=== PATIENT | female | born 1975 | race Caucasian/White ===

== ENCOUNTER → 2019-10-11 16:53 | Outpatient (CLI) | payer MEDICAID, SELFPAY ==
[2019-10-11 17:20] LABS: Absolute Lymphocyte Count 3.17 X10^3/uL (0.83-4.51); Absolute Neutrophil Count 4.3 X10^3/uL (2.0-7.7); Basophil# 0.03 X10^3/uL; Basophil% 0.4 % (0-1); Eosinophil# 0.17 X10^3/uL; Hematocrit 40.3 % (37-47); Hemoglobin 13.6 g/dL (12.0-15.0); Lymphocyte # 3.17 X10^3/ul (4.0); Lymphocyte % 38.1 % (19-41); Mean Corp Hgb Conc 33.7 g/dL (32-36); Mean Corpuscular Hgb 31.3 pg (27.0-32.0); Mean Corpuscular Volume 92.9 fL (81-99); Mean Platelet Vol. 10.7 fl (6.2-12.0); Monocyte# 0.58 X10^3/uL; NRBC Flagged by Analyzer 0 % (0-5); Neutrophil # 4.34 X10^3/uL (2.7-7.7); Neutrophil % 52.3 % (47-70); Platelet Count 284 K/mm3 (150-450); RBC Distribution Width CV 12.7 % (11.6-14.6); RBC Distribution Width SD 43.5 fl (35.1-43.9); Red Blood Count 4.34 M/mm3 (4.2-5.4); White Blood Count 8.3 K/mm3 (4.4-11.0)
[2019-10-11 18:29] LABS: ALB/GLOB Ratio 1.1 RATIO (0.9-2.4); AST(SGOT) 25 U/L (15-37); Alanine Aminotransfer ALT/SGPT 66 U/L (13-56); Albumin, Serum 3.4 g/dL (3.2-5.0); Alkaline Phosphatase 141 U/L (45-117); Anion Gap 2 (5-15); BUN 8 mg/dL (7-18); BUN/Creat Ratio 10.1 RATIO (10-20); Calcium,Total 8.3 mg/dL (8.5-10.1); Chloride 111 mmol/L (98-107); EST Glomerular Filtration Rate 83 mL/min (>60); Est Glom Filt Rate - Afr Amer 101 mL/min (>60); Globulin 3.2 g/dL (2.2-4.2); Glucose 93 mg/dL (74-106); Potassium 3.3 mmol/L (3.5-5.1); Protein, Total 6.6 g/dL (6.4-8.2); Sodium Level 142 mmol/L (136-145); Thyroid Stim Hormone (TSH) 0.37 uIU/mL (0.358-3.74)
== END ==
PROVIDERS: Visit Provider Family Medicine Geriatric Medicine
DX: R53.83 Other fatigue (principal)
CPT/HCPCS: 36415; 80053; 84443; 85025

== ENCOUNTER → 2019-10-24 07:29 | Outpatient (CLI) | payer MEDICAID, SELFPAY ==
--- NOTE | 2019-10-24 07:32 | US_ITS ---
STUDY: ABDOMINAL ULTRASOUND - RIGHT UPPER QUADRANT REASON FOR VISIT: Female, 43 years old ABN LFT -- INTERMIT ENT N/V -- CHRONIC DIARRHEA -- S/P CHOLECYSTECTOMY 2012 TECHNIQUE: Ultrasound evaluation of the right upper quadrant was performed with real-time and static dodson-scale imaging. TECHNICAL QUALITY: Adequate. COMPARISON: None. FINDINGS: Liver: The liver measures 13.6 cm. There is normal echogenicity of the liver. The bile ducts are within normal limits. There is hepatic color flow. The direction of portal flow is hepatopetal. There is no demonstrated mass lesion. Gallbladder: The patient is status post cholecystectomy. Common Bile Duct (C.B.D.): The common bile duct measures 7.5 mm. Pancreas: Normal size of the head, body and tail of the pancreas. There is normal echogenicity of the pancreas. There is no demonstrated pancreatic mass or cyst. Right Kidney: Normal size of the right kidney. The right kidney measures 9.6 cm x 4.8 cm x 4.5 cm. Normal renal cortex. The right cortex measures 1.8 cm. There is no demonstrated renal mass or cyst. There is no right hydronephrosis. US/Liver IMPRESSION: Normal right upper quadrant ultrasound examination. The patient is status post cholecystectomy. Electronically Signed: Andre Green, at 14:54 EDT , Service support ,
== END ==
PROVIDERS: PCP Family Medicine Geriatric Medicine; Referring Provider Family Medicine Geriatric Medicine; Visit Provider Family Medicine Geriatric Medicine
DX: R74.8 Abnormal levels of other serum enzymes (principal)
CPT/HCPCS: 76705

== ENCOUNTER → 2019-10-24 08:43 | Outpatient (CLI) | payer MEDICAID, SELFPAY ==
[2019-10-24 12:46] LABS: Anion Gap 3 (5-15); BUN 5 mg/dL (7-18); BUN/Creat Ratio 6.1 RATIO (10-20); Calcium,Total 9.4 mg/dL (8.5-10.1); Chloride 109 mmol/L (98-107); Creatinine, Serum 0.82 mg/dL (0.55-1.02); EST Glomerular Filtration Rate 81 mL/min (>60); Est Glom Filt Rate - Afr Amer 98 mL/min (>60); Glucose 112 mg/dL (74-106); Potassium 4.6 mmol/L (3.5-5.1); Sodium Level 140 mmol/L (136-145)
[2019-10-25 08:08] LABS: HEPATITIS B SURFACE AG Negative (Negative); Hepatitis A AB, Total Positive (Negative); Hepatitis A IgM Antibody Negative (Negative); Hepatitis B Core AB IgM Negative (Negative); Hepatitis B Core Ab Total Positive (Negative); Hepatitis C Ab >11.0 s/co ratio (0.0-0.9)
[2019-10-25 13:29] LABS: Hep B Surface Antibodies Reactive (.)
[2019-10-28 03:07] LABS: HCV Quant. RNA PCR HCV Not Detected IU/mL (.)
== END ==
PROVIDERS: Visit Provider Family Medicine Geriatric Medicine
DX: E87.6 Hypokalemia (principal); B18.2 Chronic viral hepatitis C; R74.8 Abnormal levels of other serum enzymes
CPT/HCPCS: 36415; 76705; 80048; 86704; 86705; 86706; 86708; 86709; 86803; 87340; 87522

== ENCOUNTER → 2019-10-26 08:27 | Outpatient (CLI) | payer MEDICAID, SELFPAY ==
[2019-10-26 08:23] VITALS: BMI 24.3
--- NOTE | 2019-10-26 08:28 | RAD_ITS ---
STUDY: X-RAY - RIGHT KNEE REASON FOR EXAM: Female, 44 years old. PT STATES CHRONIC DISLOCATION AND KNEE PAIN TECHNIQUE: 4 view(s) of the knee. COMPARISON: None. FINDINGS: Normal visualized distal femur. Normal visualized proximal tibia and fibula. Normal proximal tibiofibular articulation. Normal medial femorotibial compartment. Normal lateral femorotibial compartment. Normal patellofemoral articulation. The soft tissue structures are unremarkable. RAD/Knee 4 or More Views IMPRESSION: Normal x-ray examination of the knee. Electronically Signed: Andre Green, at 15:25 EDT , Service support ,
== END ==
PROVIDERS: PCP Family Medicine Geriatric Medicine; Referring Provider Orthopaedic Surgery; Visit Provider Orthopaedic Surgery
DX: M25.561 Pain in right knee (principal)
CPT/HCPCS: 73564

== ENCOUNTER 2019-11-01 11:31 | Observation (INO) | payer MEDICAID, SELFPAY ==
[2019-10-26 08:23] VITALS: BMI 24.3
[2019-11-01] VITALS (12 sets, daily range): BP systolic 97–149; BP diastolic 60–113; PULSE 55–81; RESP 16–36; TEMP 36.6–36.9; O2SAT 96–100; BMI 27.6; BMI 24.5
--- NOTE | 2019-11-01 11:39 | EKG12_ITS ---
Test Reason : CP Blood Pressure : / mmHG Vent. Rate : 072 BPM Atrial Rate : 072 BPM P-R Int : 136 ms QRS Dur : 084 ms QT Int : 388 ms P-R-T Axes : 056 060 054 degrees QTc Int : 424 ms Normal sinus rhythm Normal ECG Confirmed by JAZIEL SUH, BILL ([id number]), supervising editor news reel ERROL GALLEGOS ([id number]) on 11/03/2019 10:48:41 AM Referred By: BRIAN Confirmed By:BILL SHERIFF MD
--- NOTE | 2019-11-01 11:41 | NURSING ---
NO OLD EKGS
[2019-11-01] MEDS: Aspirin 81 MG TAB.CHEW 324 MG PO (11:46)
--- NOTE | 2019-11-01 11:48 | ED.VIS.GEN ---
History of Present Illness Chief Complaint: Chest Pain Informant: Patient Narrative: 4-year-old female presenting with left-sided chest pain. She describes it as a house kicked to the chest. This started at 7 AM and have associated nausea. The patient was able to get her pain under control by sitting still however when she went to get up she started having chest pain that radiated into her neck and jaw on the left side. She is not had pain like this before. She has a distant stress test. Patient states she is currently planning a for her brother who in July. She has history of stroke, hyperlipidemia, tobacco use. She is not had any fever or chills. No exposure to COVID that she knows of. Patient does state that she was in her primary care physician's office to get an EKG and gave her some nitroglycerin which took her pain down to a 4?5. Prior similar symptoms: No Recent Illness/Hospitalization: No Past Medical History - Allergies and Home Meds Allergies/Adverse Reactions: Allergies ondansetron [From Zofran] Allergy (Severe, Verified 11/01/19 11:37) Anaphylaxis Penicillins Adverse Reaction (Severe, Verified 11/01/19 11:37) rash sumatriptan [From Imitrex] Adverse Reaction (Intermediate, Verified 11/01/19 11:37) high blood pressure latex Adverse Reaction (Verified 11/01/19 11:37) rash inert metals Adverse Reaction (Severe, Uncoded 11/01/19 11:37) rash Primary Care Physician: Anirudh Key Chi, MD [Primary Care Provider] - Past Medical History: - - Stroke, hyperlipidemia Surgical History: noncontributory Lives: Spouse/ Significant Other Smoking Status: Current every day smoker Alcohol: None Drugs: None Review of Systems General: Denies: Chills, Fever, Sweats Eyes: Denies: Visual changes - bilaterally, Diplopia ENT: Denies: Rhinorrhea, Sore throat Cardiovascular: Reports: Chest pain. Denies: Heart racing Respiratory: Denies: Dyspnea, Cough Gastrointestinal: Denies: Abdominal pain, Nausea, Vomiting Genitourinary: Denies: Dysuria, Hematuria Musculoskeletal: Denies: Myalgias, Arthralgias Skin: Denies: Rash, Abscess Neurological: Reports: Weakness - Residual right-sided extremity weakness status post TIA. Denies: Headache Psych: Reports: Depression. Denies: Anxiety Physical Exam Vital Signs/Narrative: Vital Signs Temp Pulse Resp BP Pulse Ox 11/01/19 11:32 98.5 F 73 16 117/84 H 97 General: Well nourished, Unkempt, No Acute Distress Head: Atraumatic Eyes: Perrl, EOMI ENT: Moist mucous membranes, No rhinorrhea Cardiovascular: Regular rate, Regular rhythm, No murmurs Respiratory: No distress, CTA bilaterally, Chest nontender Back: Nontender, Normal Inspection Extremities: Nontender, No edema Skin: Normal color, No rash Neurological: Alert, Oriented x3 Psychological: Normal affect Diagnostic/Tx/Re-eval - Medical Decision Making 44-year-old female presenting with chest pain which starts in her chest 44-year-old female presenting with chest pain in the left side of her chest which radiates into her jaw. She states this is also exertional. When she sits still her pain improved significantly however when she tries to get up she gets worsening chest pain. These episodes are intermittent. She was seen in her PCPs office today and had an EKG as well as nitroglycerin. On her their EKG she has a T wave inversion and slight depression in V3. This is not present on her EKG in the ER. She states that her chest pain was a 4-5 when she arrived here. She was given another dose of nitroglycerin and initially had some increasing pain but then her chest pain resolved.When patient's chest x-ray and lab work were unremarkable. Given her heart score of 4 I will admit her to the hospital and concerning symptoms I will admit her to the hospital for further testing and evaluation. Was given aspirin in the ED. She is stable for the medical floor. Impression: 1. Chest pain ED Disposition - Plan for ED Patient: Referrals: Anirudh Key Chi, MD [Primary Care Provider] -
[2019-11-01 11:49] LABS: Absolute Lymphocyte Count 2.66 X10^3/uL (0.83-4.51); Absolute Neutrophil Count 8.6 X10^3/uL (2.0-7.7); Basophil# 0.05 X10^3/uL; Basophil% 0.4 % (0-1); Eosinophil# 0.09 X10^3/uL; Eosinophils% 0.8 % (0-5); Hematocrit 44.3 % (37-47); Hemoglobin 14.8 g/dL (12.0-15.0); Lymphocyte # 2.66 X10^3/ul (4.0); Lymphocyte % 22.2 % (19-41); Mean Corp Hgb Conc 33.4 g/dL (32-36); Mean Corpuscular Hgb 30.7 pg (27.0-32.0); Mean Corpuscular Volume 91.9 fL (81-99); Monocyte# 0.58 X10^3/uL; Monocyte% 4.8 % (0-10); NRBC Flagged by Analyzer 0 % (0-5); Neutrophil # 8.58 X10^3/uL (2.7-7.7); Neutrophil % 71.5 % (47-70); Platelet Count 310 K/mm3 (150-450); RBC Distribution Width CV 12.2 % (11.6-14.6); RBC Distribution Width SD 41.4 fl (35.1-43.9); Red Blood Count 4.82 M/mm3 (4.2-5.4)
--- NOTE | 2019-11-01 11:50 | RAD_ITS ---
STUDY: X-RAY CHEST REASON FOR EXAM: Female, 44 years old. Chest pain, HX AFIB TECHNIQUE: Single AP portable view of the chest. COMPARISON: None. FINDINGS: Cardiac silhouette unremarkable. Pulmonary vascularity unremarkable. Aorta unremarkable. No focal patchy airspace opacities. No pleural effusions. Upper abdomen unremarkable. Osseous structures intact. No pneumothorax. RAD/Chest 1 View (Portable) IMPRESSION: No acute cardiopulmonary findings Electronically Signed: Andrae Baez DO at 12:08 EDT Tel , Service support ,
[2019-11-01 12:10] LABS: Anion Gap 6 (5-15); BUN 5 mg/dL (7-18); BUN/Creat Ratio 6.6 RATIO (10-20); Calcium,Total 9.5 mg/dL (8.5-10.1); Chloride 108 mmol/L (98-107); Creatinine, Serum 0.75 mg/dL (0.55-1.02); EST Glomerular Filtration Rate 89 mL/min (>60); Est Glom Filt Rate - Afr Amer 108 mL/min (>60); Estimated Creatinine Clearance 82.66 ml/min; Glucose 93 mg/dL (74-106); Potassium 3.6 mmol/L (3.5-5.1); Sodium Level 138 mmol/L (136-145)
[2019-11-01] MEDS: Nitroglycerin SL (ED/IMG/CATH) 0.4 MG TABLET SUBLINGUAL (12:15)
[2019-11-01] MEDS: 0.9% Normal Saline 1,000 ML 999 ML IV (12:17)
--- NOTE | 2019-11-01 13:45 | NURSING ---
124 CP NIHARIKA OBS
--- NOTE | 2019-11-01 14:23 | PCM.HP.STD ---
Problem List (1) Chest pain Status: Acute History of Present Illness Date of Admission: 11/01/19 Chief Complaint: chest pain The patient is a 44 year old F presents with a 1 day history of chest pain. Patient states that chest pain is midsternal and with exertion will radiate to her jaw, she will feel diaphoretic, short of breath and have nausea. Symptoms improve when she rests. Has had pain like this before when she has had issues with hypokalemia and hypomagnesemia. She presented to her primary care doctors who saw a T wave inversion in the lead and sent her to the emergency room. Repeat EKG did not show any inversion. In the emergency room, patient received aspirin, nitroglycerin. Currently feels fine at this time. [] Past Medical History Medical History: Medical History (Last Updated 11/01/19 @ 14:[address] Andrae Odonnell DO) PFO (patent foramen ovale) Q21.1 Paroxysmal A-fib I48.0 Hx of TIA (transient ischemic attack) and stroke Z86.73 hx of right knee scope Allergies ondansetron [From Zofran] Allergy (Severe, Verified 11/01/19 11:37) Anaphylaxis Penicillins Allergy (Severe, Verified 11/01/19 14:20) rash latex Allergy (Verified 11/01/19 14:20) rash sumatriptan [From Imitrex] Adverse Reaction (Intermediate, Verified 11/01/19 11:37) high blood pressure tramadol Adverse Reaction (Verified 11/01/19 14:20) hypertension inert metals Allergy (Severe, Uncoded 11/01/19 14:20) rash Home Medications: Ambulatory Orders Medication Instructions Recorded apixaban 5 mg tablet 5 mg PO BID 10/26/19 atorvastatin 40 mg tablet 40 mg PO DAILY 10/26/19 Varenicline [Chantix] 1 mg PO BID 11/01/19 Surgical History: Surgical History (Last Reviewed 11/01/19 @ 14:[address] Andrae Odonnell DO) H/O: hysterectomy Z90.710 Hx of oophorectomy Surgical History: noncontributory Lives: Spouse/ Significant Other Smoking Status: Light Smoker (<10/day) - 7/day Tobacco Use: Cigarettes Alcohol: None Drugs: None - *Family History Paternal Family History: Family History (Last Updated 11/01/19 @ 14:[address] Andrae Odonnell, DO) Other Aortic aneurysm CAD (coronary artery disease) Review of Systems Constitutional: Denies: Anorexia, Chills, Fever, Night Sweats, Malaise, Weakness Eyes: Denies: Blurred vision, Double vision HEENT: Denies: Head Aches, Sinus Congestion, Sinus Drainage Cardiovascular: Reports: Chest Pain. Denies: Edema - trace Respiratory: Reports: Shortness of Breath. Denies: Cough, Sputum production Gastrointestinal: Denies: Abdominal Pain, Nausea, Vomiting Musculoskeletal: Denies: Joint Pain, Joint Tenderness Skin: Denies: Rash, Wounds Neurological: Denies: Numbness, Tingling, Focal weakness Hematologic/ Lymphatic: Denies: Easy Bruising, Easy Bleeding, Hx of blood clot Comment: All review of systems were negative except as mentioned above in the history of present illness and the other review of systems. VTE Information - Inpt Only VTE Present on Admission: No VTE Mechan Device Prophylaxis: None VTE Pharm Prophylaxis ordered?: No Reason prophylaxis not ordered:: Treatment Not Indicated Patient Problems: Active and Suspected Problems (Last Updated 10/26/19 @ 08:38 by Latoya Alcantara) Chest pain (Acute) - Physical Exam Vitals/I&O's: Vital Signs Temp Pulse Resp BP Pulse Ox 36.8 C 59 L 19 H 134/113 H 99 11/01/19 13:53 11/01/19 13:53 11/01/19 13:53 11/01/19 13:53 11/01/19 13:53 Oxygen Flow Rate (L/min) 2 Oxygen Delivery Method Nasal Cannula Weight: 64.7 kg Body Mass Index (BMI) 24.5 Intake and Output for Last 24 Hours 10/30/19 10/31/19 11/01/19 23:59 23:59 23:59 Intake Total 1000 / 1000 Balance 1000 / 1000 General: Alert, Cooperative, No apparent distress HEENT: Atraumatic, Normocephalic Oral: Moist Mucosa, No Gingival or Mucosal Lesions/ Ulcerations Neck: No Nodes, Thyroid Normal Size and Texture Lungs: Clear to auscultation, Normal air movement, No rhonchi, No wheeze, No rales Cardiovascular: Regular rate, Regular Rhythm, Normal S1, Normal S2, No murmurs Abdomen: Bowel Sounds Present, Soft, Non Tender, Non-Distended, No Hepato-splenomegaly Extremities: No edema, No Calf Tenderness Skin: No rashes, No breakdown Neurological: Deep Tendon Reflexes 2+/4 and Symmetrical, - - no clonus Psych/Mental Status: Normal Affect, Appropriate Laboratory Results 11/01/19 11:40: WBC 12.0 H, RBC 4.82, Hgb 14.8, Hct 44.3, MCV 91.9, MCH 30.7, MCHC 33.4, RDW Std Deviation 41.4, RDW Coeff of [place] 12.2, Plt Count 310, MPV 11.0, Immature Gran % (Auto) 0.300, Neut % (Auto) 71.5 H, Lymph % (Auto) 22.2, [place] % (Auto) 4.8, Eos % (Auto) 0.8, Baso % (Auto) 0.4, Absolute Neuts (auto) 8.6 H, Absolute Lymphs (auto) 2.66, Nucleated RBC % 0 11/01/19 11:40: Sodium 138, Potassium 3.6, Chloride 108 H, Carbon Dioxide 24.0, Anion Gap 6, BUN 5 L, Creatinine 0.75, Estim Creat Clear Calc 82.66, Est GFR (MDRD) Af Amer 108, Est GFR (MDRD) Non-Af 89, BUN/Creatinine Ratio 6.6 L, Glucose 93, Calcium 9.5, Troponin I < 0.015 EKG reviewed and showed normal sinus rhythm with no acute changes. Chest x-ray reviewed and showed normal airways with no infiltrate nor pulmonary edema. Current Medications Sodium Chloride () 10 - 40 ml IV UD PRN PRN Reason: SALINE FLUSH Assessment/Plan All Active Problems (Last Updated 10/26/19 @ 08:38 by Latoya Alcantara) Chest pain (Acute) 1. Chest pain: GOLDIE score of 2. Fanny score of 66. Plan is to cycle troponins, continue with aspirin and order a treadmill stress echocardiogram to be performed on the second. If evidence of a myocardial infarction with elevated cardiac markers or change in her clinical status, then will consult cardiology. Otherwise will await the results of the stress test 2. Paroxysmal atrial fibrillation: Currently sinus rhythm. Anticoagulated on apixaban. 3. History of TIA: Likely secondary to the patient's history of paroxysmal atrial fibrillation. Anticoagulated on apixaban. 4. Tobacco abuse: Patient states that she has been cutting back with the help of Chantix. 5. VTE prophylaxis: Not indicated and low risk as patient is observation status and already on apixaban. 6. CODE STATUS: Reviewed with the patient. Patient wishes to be full CODE STATUS. OBSV E&M: [id number] Initial observation care L3
--- NOTE | 2019-11-01 14:27 | EKG12_ITS ---
Test Reason : ADMISSION CP Blood Pressure : / mmHG Vent. Rate : 057 BPM Atrial Rate : 057 BPM P-R Int : 152 ms QRS Dur : 084 ms QT Int : 414 ms P-R-T Axes : 070 060 050 degrees QTc Int : 402 ms Sinus bradycardia T wave abnormality, consider anterior ischemia Abnormal ECG Confirmed by HARLEY SUH, AUGUSTIN ([id number]), film editor supervisor ERROL GALLEGOS ([id number]) on 11/03/2019 11:47:01 AM Referred By: NIHARIKA Confirmed By:AUGUSTIN SOUZA MD
--- NOTE | 2019-11-01 15:41 | NURSING ---
This RN taking over care of pt at this time. Report received from NILSA Burgos.
[2019-11-01] MEDS: proMETHazine 25 MG/ML Syringe 12.5 MG IV (15:49)
[2019-11-01] MEDS: APIXABAN 5 MG TABLET PO (21:00)
[2019-11-01] MEDS: Atorvastatin Calcium 40 MG Tablet PO (21:00)
[2019-11-01] MEDS: Varenicline 1 MG Tablet PO (21:00)
--- NOTE | 2019-11-01 23:11 | EKG12_ITS ---
Test Reason : CP Blood Pressure : / mmHG Vent. Rate : 071 BPM Atrial Rate : 071 BPM P-R Int : 150 ms QRS Dur : 086 ms QT Int : 398 ms P-R-T Axes : 072 056 051 degrees QTc Int : 432 ms Normal sinus rhythm T Wave Abnormality, consider anterior ischemia Confirmed by HARLEY SUH, AUGUSTIN ([id number]), video effects editor ERROL GALLEGOS ([id number]) on 11/03/2019 11:46:48 AM Referred By: DR WARREN Confirmed By:AUGUSTIN SOUZA MD
[2019-11-01] MEDS: Nitroglycerin (INPATIENT USE) 0.4 MG TAB.SUBL SUBLINGUAL ×2 (23:26→23:35)
[2019-11-01] MEDS: oxyCODONE 5 MG Tablet 10 MG PO (23:26)
--- NOTE | 2019-11-01 23:38 | NURSING ---
Pt c/o 09/08 CP. VS completed. STAT EKG obtained which showed NSR. Oxyir PO given per medication order for pain. Nitro SL X1 given which improved pain to 5/10. Another SL Nitro given. Pt reports pain has improved to a 5/10. States pain is heavy. States the pain has basically returned to how it was previously today. Will continue to monitor. BP now 87/58, therefore not giving 3rd Nitro at this time.
[2019-11-02] VITALS (7 sets, daily range): BP systolic 93–113; BP diastolic 56–87; PULSE 60–69; RESP 18–20; TEMP 36.6–36.7; O2SAT 95–99
--- NOTE | 2019-11-02 05:55 | STEWCON_ITS ---
Reason For Study: Chest Pain Stress Results Protocol: Freddie Protocol WITH DEFINITY Maximum Predicted HR: 176 bpm Target HR: 150 bpm % Maximum Predicted HR: 84 % DurationHeart Rate Stage (mm:ss) (bpm) BP Comment Baseline 67 106/70Mild Chest Pain; 3 ML Diluted Definity Given Freddie Protocol Stage I 3:00 96 118/72Mild Chest Pain Freddie Protocol Stage II 3:00 103 124/76Mild Chest Pain; Mild Dyspnea Freddie Protocol Stage III 3:36 148 146/70Moderate Chest Cramping; Moderate Dyspnea Recovery 95 106/64Mild Chest Pain Stress Duration: 9:36 mm:ss Maximum Stress HR: 148 bpm METS: 10 Baseline Echocardiogram Findings The estimated ejection fraction is 60 %. Post stress EF is 70%. Stress Echo Wall motion Data Resting WM Intermediate WM Stress WM Resting Wall Motion Wall Motion Stress No regional wall motion No regional wall motion abnormalities noted. abnormalities noted. EKG Data The baseline ECG demonstrates normal sinus rhythm with at rate of _ beats per minute. No ischemic changes. Symptoms with Stress The patient experinced no chest pain . Interpretation Summary The estimated ejection fraction is 60 %. Stress echo is negative for exercise induced CP or EKG or echocardiographic changes of ischemia. Trivial pericardial effusion Ordering Physician: Andrae Odonnell Referring Physician: Sandra Herring M.D. Performed By: Clara Low, RDCS, RVT
--- NOTE | 2019-11-02 05:55 | EKG12_ITS ---
Test Reason : AM EKG Blood Pressure : / mmHG Vent. Rate : 071 BPM Atrial Rate : 071 BPM P-R Int : 158 ms QRS Dur : 084 ms QT Int : 398 ms P-R-T Axes : 065 048 043 degrees QTc Int : 432 ms Normal sinus rhythm Normal ECG When compared with ECG of 01-NOV-2019 23:28, MANUAL COMPARISON REQUIRED, DATA IS UNCONFIRMED Confirmed by DEENA SUH, TATUM ([id number]), editorial director ERROL GALLEGOS ([id number]) on 11/11/2019 1:31:19 PM Referred By: NIHARIKA Confirmed By:QUINN SHAFFER MD
[2019-11-02] MEDS: Aspirin E.C. 81 MG Tablet PO (06:28)
[2019-11-02] MEDS: Acetaminophen 325 MG Tablet 650 MG PO (06:28)
[2019-11-02 07:45] LABS: Anion Gap 3 (5-15); BUN 7 mg/dL (7-18); BUN/Creat Ratio 10.6 RATIO (10-20); Calcium,Total 8.2 mg/dL (8.5-10.1); Chloride 110 mmol/L (98-107); Cholesterol 97 mg/dL (200); Creatinine, Serum 0.66 mg/dL (0.55-1.02); EST Glomerular Filtration Rate 103 mL/min (>60); Est Glom Filt Rate - Afr Amer 125 mL/min (>60); Estimated Creatinine Clearance 93.93 ml/min; Glucose 89 mg/dL (74-106); High Density Lipoprotein 35 mg/dL; Potassium 3.9 mmol/L (3.5-5.1); Sodium Level 140 mmol/L (136-145); Triglycerides 87 mg/dL; Very Low Density Lipoprotein 17 mg/dL (5-40)
--- NOTE | 2019-11-02 11:00 | NURSING ---
[facility] late due to pt off floor testing.
--- NOTE | 2019-11-02 11:48 | DCINST_ITS ---
- Discharge Diagnoses Current Active Problems: Current Active and Chronic Problems (Last Updated 11/01/19 @ 14:[address] Andrae Odonnell, DO) Chest pain (Acute) You will use the following diet at home:: Cardiac Your food should be the consistency of: Regular Discharge Activity: Return to Normal Activity Weight Bearing Status: Full weight bearing Call your doctor if you observe: Fever of 101 or Higher, Shortness of breath, Dizziness, Fainting spells, Chest pain, Increased palpitations (irregular heartbeat), Uncontrolled pain Allergies/Adverse Reactions: Allergies ondansetron [From Zofran] Allergy (Severe, Verified 11/01/19 11:37) Anaphylaxis Penicillins Allergy (Severe, Verified 11/01/19 14:20) rash latex Allergy (Verified 11/01/19 14:20) rash sumatriptan [From Imitrex] Adverse Reaction (Intermediate, Verified 11/01/19 11:37) high blood pressure tramadol Adverse Reaction (Verified 11/01/19 14:20) hypertension inert metals Allergy (Severe, Uncoded 11/01/19 14:20) rash Medications to take at Discharge apixaban 5 mg tablet 5 mg PO BID 10/26/19 atorvastatin 40 mg tablet 40 mg PO DAILY 10/26/19 Varenicline [Chantix] 1 mg PO BID 11/01/19 Primary Care Physician: Anirudh Key Chi, MD [Primary Care Provider] - Please follow up with your Primary Care Physician in: 1-2 WEEKS. Test Results: Test results from this visit will be discussed in further detail at your follow- up appointment, if applicable.
--- NOTE | 2019-11-02 12:12 | PHA.DC.MR ---
Pharmacy Service has performed discharge medication reconciliation for this patient. The patient's discharge medication list was reviewed for discrepancies and discrepancies were resolved. Home Medications apixaban 5 mg tablet 5 mg PO BID 10/26/19 atorvastatin 40 mg tablet 40 mg PO DAILY 10/26/19 Varenicline [Chantix] 1 mg PO BID 11/01/19
[2019-11-02] MEDS: Varenicline 1 MG Tablet PO (13:56)
[2019-11-02] MEDS: APIXABAN 5 MG TABLET PO (13:57)
--- NOTE | 2019-11-02 14:24 | PCM.DC.SUM ---
Discharge Date and Diagnosis - Problem List Patient Problems: Active and Suspected Problems (Last Updated 11/01/19 @ 14:[address] Andrae Odonnell DO) Chest pain (Acute) Date of Admission: 11/01/19 Date of Discharge: 11/02/19 - Primary Discharge Diagnosis Acute Problems: Active Problems (Last Updated 11/01/19 @ 14:[address] Andrae Odonnell DO) Chest pain, ACS ruled out (Acute) Hospital Course and Treatment Imaging Results: 11/02/19 05:55 Stress Test Echo W/Contrast [ECHO] AM (NON MEDS) Clinical Impression(s) from Imaging Studies Chest X-Ray 11/01/19 11:50 IMPRESSION: No acute cardiopulmonary findings Electronically Signed: Andrae Baez DO at 12:08 EDT Tel , Service support , Operations: None Procedures: EKG, - - Stress echocardiogram. Summary of Care Provided: Patient seen and examined on the day of discharge and appeared to be stable to be discharged home. Chest pain has been getting better. Her EKG revealed no acute segment changes. Stress echocardiogram was negative for stress-induced myocardial ischemia. Her vital signs are stable. The patient is a 44 year old F admitted for chest pain for evaluation. Her EKG revealed normal sinus rhythm without evidence of acute ischemic changes. Her chest x-ray showed no acute findings. Routine blood work was unremarkable. Troponin was negative x3. Patient underwent stress echocardiogram that was negative for exercise-induced chest pain, EKG changes or echocardiographic changes of ischemia. ACS ruled out. Patient's vital signs remained stable and she remained in sinus rhythm. Patient discharged home in a stable condition, discharged on her previous home medications including Eliquis without any changes, recommended follow-up with PCP in 1 to 2 weeks. Patient Problems: Active and Suspected Problems (Last Updated 11/01/19 @ 14:[address] Andrae Odonnell DO) Chest pain (Acute) - Physical Exam Vitals/I&O's: Vital Signs Temp Pulse Resp BP Pulse Ox 97.8 F 60 18 113/87 H 99 11/02/19 13:53 11/02/19 13:53 11/02/19 13:53 11/02/19 13:53 11/02/19 13:53 Oxygen Flow Rate (L/min) 3 Oxygen Delivery Method Room Air Weight: 142 lb 10.225 oz Body Mass Index (BMI) 24.5 Intake and Output for Last 24 Hours 10/31/19 11/01/19 11/02/19 23:59 23:59 23:59 Intake Total 1876 255 / 255 Balance 1876 255 / 255 General: Alert, Oriented x3, Cooperative, No apparent distress HEENT: Atraumatic, PERRLA, EOMI, Normocephalic Oral: Moist Mucosa, No Gingival or Mucosal Lesions/ Ulcerations Neck: Supple, No JVD, Negative Carotid Bruits, Trachea Midline, Thyroid Normal Size and Texture Lungs: Clear to auscultation, Normal air movement, No rhonchi, No wheeze, No rales Cardiovascular: Regular rate, Regular Rhythm, Normal S1, Normal S2, PMI Normal Abdomen: Bowel Sounds Present, Soft, Non Tender, Non-Distended, No Hepato-splenomegaly Extremities: No clubbing, No cyanosis, No edema Skin: No rashes, No breakdown Lymphatic: No Cervical, Supraclavicular, or Inguinal Adenopathy Neurological: Cranial nerves II-XII grossly intact, Neuro grossly intact Psych/Mental Status: Normal Affect, Appropriate Laboratory Results 11/01/19 15:37: Magnesium 2.0 11/01/19 15:37: Troponin I < 0.015 11/01/19 18:48: Troponin I < 0.015 11/02/19 06:59: Sodium 140, Potassium 3.9, Chloride 110 H, Carbon Dioxide 27.0, Anion Gap 3 L, BUN 7, Creatinine 0.66, Estim Creat Clear Calc 93.93, Est GFR (MDRD) Af Amer 125, Est GFR (MDRD) Non-Af 103, BUN/Creatinine Ratio 10.6, Glucose 89, Calcium 8.2 L, Triglycerides 87, Cholesterol 97, LDL Cholesterol 45, VLDL Cholesterol 17, HDL Cholesterol 35 L Current Medications Acetaminophen (Tylenol) 650 mg PO Q6H PRN PRN PRN Reason: Pain Score 1-10/Temp > 100.7 F Last Admin: 11/02/19 06:28 Dose: 650 mg Documented by: Apixaban (Eliquis) 5 mg PO BID [facility] Last Admin: 11/02/19 13:57 Dose: 5 mg Documented by: Aspirin (Ecotrin) 81 mg PO DAILY@0800 [facility] Last Admin: 11/02/19 06:28 Dose: 81 mg Documented by: Atorvastatin Calcium (Lipitor) 40 mg PO QHS [facility] Last Admin: 11/01/19 21:00 Dose: 40 mg Documented by: Morphine Sulfate () 4 mg IV Q3H PRN PRN PRN Reason: breakthough pain Nitroglycerin (Nitrostat) 0.4 mg SUBLINGUAL Q5M PRN PRN Reason: CARDIAC/CHEST PAIN Last Admin: 11/01/19 23:35 Dose: 0.4 mg Documented by: Oxycodone HCl (Oxyir) 5 mg PO Q4H PRN PRN PRN Reason: Pain Score 4-5/10 Oxycodone HCl (Oxyir) 10 mg PO Q4H PRN PRN PRN Reason: Pain Score 6-10/10 Last Admin: 11/01/19 23:26 Dose: 10 mg Documented by: Promethazine HCl (Phenergan) 12.5 mg IV Q4H PRN PRN PRN Reason: NAUSEA/VOMITING Last Admin: 11/01/19 15:49 Dose: 12.5 mg Documented by: Varenicline (Chantix) 1 mg PO BID [facility] Last Admin: 11/02/19 13:56 Dose: 1 mg Documented by: Discharge Activity: Return to Normal Activity Weight Bearing Status: Full weight bearing Call your doctor if you observe: Fever of 101 or Higher, Shortness of breath, Dizziness, Fainting spells, Chest pain, Increased palpitations (irregular heartbeat), Uncontrolled pain Home Medications: Medications to take at Discharge apixaban 5 mg tablet 5 mg PO BID 10/26/19 atorvastatin 40 mg tablet 40 mg PO DAILY 10/26/19 Varenicline [Chantix] 1 mg PO BID 11/01/19 Primary Care Physician: Anirudh Key Chi, MD [Primary Care Provider] - Please follow up with your Primary Care Physician in: 1-2 WEEKS. Disposition: Home Minutes spent on discharge:: 27 Patient Condition:: Stable Medical Necessity - Tobacco Use Smoking Status: Light Smoker (<10/day) Tobacco Use: Cigarettes, Vapor Meaningful Use Info Meaningful Use Diagnoses (Choose all that apply): None applicable OBSV E&M: 62271 Observation care discharge
== END 2019-11-02 11:49 | disposition home or self-care (01) ==
LOC: ED 12:37 → PCU 14:33
PROVIDERS: Emergency Provider Student in an Organized Health Care Education/Training Program; PCP Family Medicine Geriatric Medicine; Visit Provider Hospitalist
DX: R07.89 Other chest pain (principal); E78.5 Hyperlipidemia, unspecified; F17.200 Nicotine dependence, unspecified, uncomplicated; I48.0 Paroxysmal atrial fibrillation; Q21.1 Atrial septal defect; F17.210 Nicotine dependence, cigarettes, uncomplicated; Z86.73 Personal history of transient ischemic attack (TIA), and cerebral infarction without residual deficits; Z79.899 Other long term (current) drug therapy; Z79.01 Long term (current) use of anticoagulants
CPT/HCPCS: 36415; 71045; 80048; 80061; 83735; 84484; 85025; 93005; 93017; 93350; 96361; 96374; 99218; 99285; 99406; Q9957; A4216; C8928; G0378

== ENCOUNTER → 2019-11-10 16:07 | Outpatient (CLI) | payer MEDICAID, SELFPAY ==
[2019-11-01 14:17] VITALS: BMI 24.5
[2019-11-10 17:17] LABS: Absolute Neutrophil Count 5.6 X10^3/uL (2.0-7.7); Basophil# 0.05 X10^3/uL; Basophil% 0.5 % (0-1); Eosinophil# 0.21 X10^3/uL; Eosinophils% 2.1 % (0-5); Hematocrit 43.4 % (37-47); Hemoglobin 14.3 g/dL (12.0-15.0); Lymphocyte % 32.7 % (19-41); Mean Corp Hgb Conc 32.9 g/dL (32-36); Mean Corpuscular Hgb 30.4 pg (27.0-32.0); Mean Corpuscular Volume 92.1 fL (81-99); Mean Platelet Vol. 11.6 fl (6.2-12.0); Monocyte# 0.68 X10^3/uL; Monocyte% 6.9 % (0-10); NRBC Flagged by Analyzer 0 % (0-5); Neutrophil # 5.63 X10^3/uL (2.7-7.7); Neutrophil % 57.6 % (47-70); Platelet Count 289 K/mm3 (150-450); RBC Distribution Width CV 11.9 % (11.6-14.6); RBC Distribution Width SD 40.9 fl (35.1-43.9); Red Blood Count 4.71 M/mm3 (4.2-5.4); White Blood Count 9.8 K/mm3 (4.4-11.0)
[2019-11-10 17:29] LABS: ALB/GLOB Ratio 1.1 RATIO (0.9-2.4); AST(SGOT) 29 U/L (15-37); Alanine Aminotransfer ALT/SGPT 28 U/L (13-56); Albumin, Serum 3.8 g/dL (3.2-5.0); Alkaline Phosphatase 141 U/L (45-117); Anion Gap 6 (5-15); BUN 5 mg/dL (7-18); BUN/Creat Ratio 6.7 RATIO (10-20); Calcium,Total 9.2 mg/dL (8.5-10.1); Chloride 105 mmol/L (98-107); Creatinine, Serum 0.74 mg/dL (0.55-1.02); EST Glomerular Filtration Rate 91 mL/min (>60); Est Glom Filt Rate - Afr Amer 110 mL/min (>60); Globulin 3.6 g/dL (2.2-4.2); Glucose 87 mg/dL (74-106); Potassium 4.3 mmol/L (3.5-5.1); Protein, Total 7.4 g/dL (6.4-8.2); Sodium Level 140 mmol/L (136-145)
== END ==
PROVIDERS: PCP Family Medicine Geriatric Medicine; Visit Provider Family Medicine Geriatric Medicine
DX: R11.0 Nausea (principal)
CPT/HCPCS: 36415; 80053; 85025

== ENCOUNTER → 2019-11-11 16:49 | Outpatient (CLI) | payer MEDICAID, SELFPAY ==
[2019-11-01 14:17] VITALS: BMI 24.5
--- NOTE | 2019-11-11 16:50 | MRI_ITS ---
STUDY: MRI RIGHT KNEE REASON FOR EXAM: Female, 44 years old. Chronic right knee pain, prior surgery. TECHNIQUE: Standardized fat and water weighted pulse sequences were obtained in all 3 orthogonal planes. COMPARISON: X-ray 10/26/2019. FINDINGS: Normal medial meniscus. Normal hyaline cartilage of the medial femorotibial compartment. Normal medial femoral condyle and tibial plateau. Normal medial collateral ligamentous complex (MCL). Normal distal semimembranosus, gracilis and semitendinosus tendons. Normal lateral meniscus. Normal hyaline cartilage of the lateral femorotibial compartment. Normal lateral femoral condyle and tibial plateau. Normal proximal tibiofibular articulation. Normal lateral collateral (fibular) ligament. Normal popliteus tendon. Normal biceps femoris tendon. Normal anterior cruciate ligament (ACL). Normal posterior cruciate ligament (PCL). Normal congruent patellofemoral articulation. There is signal heterogeneity within the articular cartilage of the patellofemoral compartment without significant thinning and with an intact articular cartilage surface. Mild subcortical patellar marrow edema consistent with degenerative changes. Normal medial and lateral patellar retinaculum. Normal quadriceps tendon. Normal patellar tendon. Trace joint effusion. The soft tissues are unremarkable. The otherwise visualized osseous structures are unremarkable. MRI/Lower Ext Joint Only (Routine) IMPRESSION: 1. Trace joint effusion. 2. Lateral patellar tilt. 3. Mild degenerative changes of the patella. Electronically Signed: Lakisha Ceballos MD at 18:51 EDT Tel , Service support ,
== END ==
PROVIDERS: PCP Family Medicine Geriatric Medicine; Referring Provider Orthopaedic Surgery; Visit Provider Orthopaedic Surgery
DX: M25.361 Other instability, right knee (principal)
CPT/HCPCS: 73721

== ENCOUNTER 2019-12-07 13:33 | Emergency (ER) | payer MEDICAID, SELFPAY ==
[2019-11-16 12:58] VITALS: BMI 24.5
[2019-12-07 13:34] VITALS: BP 138/99; PULSE 83; RESP 14; TEMP 37.2; O2SAT 97; BMI 21.9
[2019-12-07 13:38] VITALS: BP 125/96; PULSE 79; RESP 30; TEMP 37.5; O2SAT 99
--- NOTE | 2019-12-07 13:46 | RAD_ITS ---
STUDY: X-RAY CHEST REASON FOR EXAM: Female, 44 years old. N/V/D, SORE THROAT, HEADACHE, COUGH TECHNIQUE: Single AP portable view of the chest. COMPARISON: 11/01/2019 FINDINGS: The lungs are clear and expanded. There is no demonstrated pleural abnormality. Normal size heart. Normal mediastinum and ariana. Normal visualized pulmonary arteries. Normal visualized aortic arch and descending thoracic aorta. Mild S-shaped scoliosis of the thoracic spine. Normal visualized ribs, clavicles, and shoulders. There is no demonstrated abnormality of the visualized soft tissue structures of the upper abdomen. RAD/Chest 1 View (Portable) IMPRESSION: Normal x-ray examination of the chest. Electronically Signed: Bg Cisneros MD at 15:31 EDT Tel , Service support ,
--- NOTE | 2019-12-07 13:48 | ED.VIS.GEN ---
History of Present Illness Chief Complaint: Cough Detail of Chief Complaint: Respiratory and GI symptoms that started yesterday Onset: Yesterday Context: Sudden Onset Timing: Continuous Quality: Nausea, vomiting and diarrhea, shortness of breath and cough Location: GI and respiratory Current Severity: Moderate Maximum Severity: Moderate Worsened by: Nothing Relieved by: Nothing Associated Symptoms: Thirst, dry mouth and lightheadedness Narrative: Patient is a 44-year-old woman who normally smokes 1 pack/day. She is only smoked 3 cigarettes today. She presents with nausea, vomiting diarrhea as well as cough that started yesterday. She had 4 episodes of emesis yesterday and 4 loose stools. She states she is had 10 loose stools today. She does report congestion, sore throat and cough. She does report headache. She reports shortness of breath. She states she is unable to keep anything down. She has not lost her taste or smell. She has not been out of the house since Thursday. She denies double vision, blurred vision or loss of vision. She denies photophobia. She denies neck pain or neck stiffness. She denies dysuria, frequency, urgency or hematuria. She denies swelling of her lower extremities, discoloration or pain. Prior similar symptoms: No Recent Illness/Hospitalization: No - Past Medical History (1) History of CVA (cerebrovascular accident) Status: Chronic Comment: Received TPA 2016, 01/31/2019 (2) Hyperlipidemia Status: Chronic (3) Nicotine dependence Status: Chronic (4) Paroxysmal atrial fibrillation Status: Chronic Past Medical History - Allergies and Home Meds Allergies/Adverse Reactions: Allergies ondansetron [From Zofran] Allergy (Severe, Verified 12/07/19 13:34) Anaphylaxis Penicillins Allergy (Severe, Verified 12/07/19 13:34) rash latex Allergy (Verified 12/07/19 13:34) rash sumatriptan [From Imitrex] Adverse Reaction (Intermediate, Verified 12/07/19 13:34) high blood pressure tramadol Adverse Reaction (Verified 12/07/19 13:34) hypertension inert metals Allergy (Severe, Uncoded 12/07/19 13:34) rash Primary Care Physician: Anirudh Key Chi, MD [Primary Care Provider] - Prior records reviewed: Yes Surgical History: noncontributory Lives: Roommate Smoking Status: Light Smoker (<10/day) Alcohol: Rare Drugs: None Review of Systems General: Reports: Malaise. Denies: Chills, Fever, Subjective, Sweats Eyes: Denies: Visual changes - bilaterally, Blurred Vision - bilaterally, Diplopia ENT: Reports: Rhinorrhea, Sore throat. Denies: Bilateral ear pain Cardiovascular: Reports: Palpitations. Denies: Chest pain, Heart racing Respiratory: Reports: Dyspnea, Cough, Sputum, Dyspnea on exertion. Denies: Orthopnea, Paroxysmal nocturnal dyspnea Gastrointestinal: Reports: Abdominal pain, Nausea, Vomiting, Diarrhea. Denies: Melena, Hematochezia Genitourinary: Denies: Dysuria, Hematuria, Frequency Musculoskeletal: Denies: Myalgias, Arthralgias, Neck pain, Back pain, Swelling, Extremity Pain, -, - Skin: Denies: Rash, Wounds Neurological: Denies: Headache, Weakness, Numbness Endocrine: Denies: Polyuria, Polydipsia Hematologic: Denies: Easy bruising, Easy bleeding Physical Exam Vital Signs/Narrative: Vital Signs Temp Pulse Resp BP Pulse Ox 12/07/19 13:34 99.0 F 83 14 138/99 H 97 Inital Vital Signs reviewed: Yes General: Well nourished, Well developed, - - Patient appears ill. Head: Normocephalic, Atraumatic Eyes: Perrl, EOMI. Negative for: Pale conjunctiva, Scleral icterus ENT: Dry mucous membranes, Nasal congestion, Sinus tenderness. Negative for: No rhinorrhea Neck: Supple, Nontender, No lymphadenopathy, No JVD Cardiovascular: Regular rate, Regular rhythm, No murmurs, Normal S1, Normal S2 Respiratory: No distress, Chest nontender, Wheezing, Diminished. Negative for: CTA bilaterally Abdomen: Soft, Nontender, Nondistended, Normal bowel sounds Rectal: Deferred Back: Nontender, Normal Inspection Extremities: Nontender, No edema, - - There is no asymmetry, swelling, discoloration, leg vein distention, palpable cords or tenderness along the distribution of the deep venous system. Skin: Normal color, No rash Neurological: Alert, Oriented x3, Cranial nerves II-XII grossly intact, Normal Strength, Normal Sensation, Normal Gait Psychological: Normal affect Diagnostic/Tx/Re-eval Chest X-Ray - ED: 1 View, Read by ED Physician, Normal, Heart, Lungs, Mediastinum, Bony Structures, No Acute Disease, - - View portable chest x-ray interpreted by me at 1442. The x-ray is unchanged from November 01, 2019. Minimal chronic changes. Cardiac size silhouette normal. Mediastinum normal. Osseous structures are unremarkable. Lung parenchyma is unremarkable. 12/07/19 13:46 Chest 1 View (Portable) [RAD] Stat Laboratory Results 12/07/19 12/07/19 12/07/19 14:00 14:00 14:00 WBC 6.8 RBC 5.12 Hgb 15.7 H Hct 46.4 MCV 90.6 MCH 30.7 MCHC 33.8 RDW Std Deviation 39.6 RDW Coeff of [place] 11.9 Plt Count 267 MPV 10.7 Immature Gran % (Auto) 0.100 Neut % (Auto) 52.9 Lymph % (Auto) 38.3 Gordon % (Auto) 6.9 Eos % (Auto) 1.2 Baso % (Auto) 0.6 Absolute Neuts (auto) 3.6 Absolute Lymphs (auto) 2.61 Nucleated RBC % 0 Sodium 137 Potassium 3.4 L Chloride 107 Carbon Dioxide 22.0 Anion Gap 8 BUN 4 L Creatinine 0.91 Estim Creat Clear Calc 68.12 Est GFR (MDRD) Af Amer 86 Est GFR (MDRD) Non-Af 71 BUN/Creatinine Ratio 4.4 L Glucose 98 Lactic Acid 1.6 Calcium 9.2 Total Bilirubin 0.60 AST 21 ALT 20 Alkaline Phosphatase 152 H Total Protein 7.8 Albumin 4.0 Globulin 3.8 Albumin/Globulin Ratio 1.1 Blood work is unremarkable including electrolytes, renal function and white count. COVID test is pending. - Medical Decision Making Differential diagnosis includes COVID-19, viral upper respiratory infection, exacerbation of COPD, clinically she is dehydrated. She received fluid bolus. Blood work and chest x-ray were ordered. She also received albuterol via metered dose inhaler since there is concern for COVID. ED Disposition - Plan for ED Patient: Disposition: Home or Assisted Living Diagnosis: Suspected COVID-19 virus infection, Abdominal pain, vomiting, and diarrhea, Mild dehydration, Acute bronchospasm due to viral infection Prescriptions: Loperamide HCl [Imodium A-D] 2 mg PO UD #10 cap Transmission Status: Pending to [facility] Metoclopramide [Reglan] 10 mg PO 4X/DAY PRN #20 tab PRN Reason: Headache Transmission Status: Pending to [facility] Referrals: Anirudh Key Chi, MD [Primary Care Provider] - 3-5 Days if not improving Additional Instructions: 1. It is in your best interest to stop smoking 2. 2 puffs of inhaler every 2 hours while awake for the next 24 hours then every 3-4 hours as needed for wheezing or shortness of breath
[2019-12-07] MEDS: Metoclopramide 10 MG/2 ML Vial 5 MG IV (14:08)
[2019-12-07 14:11] VITALS: O2SAT 99
[2019-12-07 14:13] VITALS: PULSE 84; RESP 17
[2019-12-07 14:13] LABS: Absolute Lymphocyte Count 2.61 X10^3/uL (0.83-4.51); Absolute Neutrophil Count 3.6 X10^3/uL (2.0-7.7); Basophil# 0.04 X10^3/uL; Basophil% 0.6 % (0-1); Eosinophil# 0.08 X10^3/uL; Eosinophils% 1.2 % (0-5); Hematocrit 46.4 % (37-47); Hemoglobin 15.7 g/dL (12.0-15.0); Lymphocyte # 2.61 X10^3/ul (4.0); Lymphocyte % 38.3 % (19-41); Mean Corp Hgb Conc 33.8 g/dL (32-36); Mean Corpuscular Hgb 30.7 pg (27.0-32.0); Mean Corpuscular Volume 90.6 fL (81-99); Mean Platelet Vol. 10.7 fl (6.2-12.0); Monocyte# 0.47 X10^3/uL; Monocyte% 6.9 % (0-10); NRBC Flagged by Analyzer 0 % (0-5); Neutrophil # 3.61 X10^3/uL (2.7-7.7); Neutrophil % 52.9 % (47-70); Platelet Count 267 K/mm3 (150-450); RBC Distribution Width CV 11.9 % (11.6-14.6); RBC Distribution Width SD 39.6 fl (35.1-43.9); Red Blood Count 5.12 M/mm3 (4.2-5.4); White Blood Count 6.8 K/mm3 (4.4-11.0)
[2019-12-07 14:29] LABS: ALB/GLOB Ratio 1.1 RATIO (0.9-2.4); AST(SGOT) 21 U/L (15-37); Alanine Aminotransfer ALT/SGPT 20 U/L (13-56); Alkaline Phosphatase 152 U/L (45-117); Anion Gap 8 (5-15); BUN 4 mg/dL (7-18); BUN/Creat Ratio 4.4 RATIO (10-20); Calcium,Total 9.2 mg/dL (8.5-10.1); Chloride 107 mmol/L (98-107); Creatinine, Serum 0.91 mg/dL (0.55-1.02); EST Glomerular Filtration Rate 71 mL/min (>60); Est Glom Filt Rate - Afr Amer 86 mL/min (>60); Estimated Creatinine Clearance 68.12 ml/min; Globulin 3.8 g/dL (2.2-4.2); Glucose 98 mg/dL (74-106); Potassium 3.4 mmol/L (3.5-5.1); Protein, Total 7.8 g/dL (6.4-8.2); Sodium Level 137 mmol/L (136-145)
[2019-12-07 14:40] LABS: Lactic Acid 1.6 mmol/L (0.4-1.9)
[2019-12-07 14:50] LABS: Procalcitonin < 0.04 ng/mL (0.00-0.09)
[2019-12-07 15:13] VITALS: BP 136/77; PULSE 98; RESP 18; O2SAT 99
== END 2019-12-07 15:15 | disposition home or self-care (01) ==
PROVIDERS: Emergency Provider Emergency Medicine; PCP Family Medicine Geriatric Medicine
DX: J98.01 Acute bronchospasm (principal); J06.9 Acute upper respiratory infection, unspecified; Z20.828 Contact with and (suspected) exposure to other viral communicable diseases; R10.9 Unspecified abdominal pain; R11.2 Nausea with vomiting, unspecified; R19.7 Diarrhea, unspecified; E86.0 Dehydration; J44.1 Chronic obstructive pulmonary disease with (acute) exacerbation; I48.0 Paroxysmal atrial fibrillation; E78.5 Hyperlipidemia, unspecified; F17.210 Nicotine dependence, cigarettes, uncomplicated; Z79.01 Long term (current) use of anticoagulants; Z79.899 Other long term (current) drug therapy; Z86.73 Personal history of transient ischemic attack (TIA), and cerebral infarction without residual deficits
CPT/HCPCS: 71045; 80053; 83605; 84145; 85025; 87040; 87633; 87635; 94640; 96361; 96374; 99285; J7030; U0003

== ENCOUNTER → 2019-12-08 14:05 | Outpatient (CLI) | payer MEDICAID, SELFPAY ==
[2019-12-07 13:34] VITALS: BMI 21.9
--- NOTE | 2019-12-08 14:11 | RAD_ITS ---
STUDY: X-RAY - ABDOMEN/PELVIS REASON FOR EXAM: Female, 44 years old. Pt. states constant diarrhea TECHNIQUE: Single AP view of the abdomen / pelvis. COMPARISON: None. FINDINGS: Status post cholecystectomy. There is an unremarkable bowel gas pattern. The visualized liver, spleen and kidneys are grossly normal in size and morphology. Normal soft tissue structures. Normal visualized osseous structures. RAD/Abdomen Single View IMPRESSION: Normal x-ray examination of the abdomen and pelvis. Electronically Signed: Bg Cisneros MD at 15:08 EDT Tel , Service support ,
== END ==
PROVIDERS: PCP Family Medicine Geriatric Medicine; Visit Provider Family Medicine Geriatric Medicine
DX: R19.7 Diarrhea, unspecified (principal)
CPT/HCPCS: 74018

== ENCOUNTER → 2019-12-09 | Outpatient (CLI) | payer MEDICAID, SELFPAY ==
[2019-12-07 13:34] VITALS: BMI 21.9
== END | disposition home or self-care (01) ==
LOC: LABSPEC 10:45
PROVIDERS: PCP Family Medicine Geriatric Medicine; Visit Provider Family Medicine Geriatric Medicine
DX: R19.7 Diarrhea, unspecified (principal)
CPT/HCPCS: 82274; 83630; 87177; 87209; 87493; 87506

== ENCOUNTER → 2021-12-25 | Outpatient (CLI) | payer MEDICAID, SELFPAY ==
[2021-12-25 17:55] LABS: Absolute Lymphocyte Count 3.31 X10^3/uL (0.83-4.51); Absolute Neutrophil Count 4.1 X10^3/uL (2.0-7.7); Basophil# 0.05 X10^3/uL; Basophil% 0.6 % (0-1); Eosinophil# 0.14 X10^3/uL; Eosinophils% 1.7 % (0-5); Hemoglobin 12.2 g/dL (12.0-15.0); Lymphocyte # 3.31 X10^3/ul (0.83-4.51); Lymphocyte % 40.8 % (19-41); Mean Corpuscular Hgb 28.4 pg (27.0-32.0); Mean Platelet Vol. 11.4 fl (6.2-12.0); Monocyte# 0.55 X10^3/uL; Monocyte% 6.8 % (0-10); NRBC Flagged by Analyzer 0 % (0-5); Neutrophil # 4.05 X10^3/uL (2.7-7.7); Neutrophil % 49.9 % (47-70); Platelet Count 280 K/mm3 (150-450); RBC Distribution Width CV 15.8 % (11.6-14.6); RBC Distribution Width SD 49.1 fl (35.1-43.9); White Blood Count 8.1 K/mm3 (4.4-11.0)
[2021-12-25 18:48] LABS: Magnesium 1.8 mg/dL (1.6-2.6)
[2021-12-25 19:15] LABS: AST(SGOT) 30 U/L (15-37); Alanine Aminotransfer ALT/SGPT 55 U/L (13-56); Albumin, Serum 3.2 g/dL (3.2-5.0); Alkaline Phosphatase 122 U/L (45-117); Anion Gap 7 (5-15); BUN 5 mg/dL (7-18); BUN/Creat Ratio 6.3 RATIO (10-20); Calcium,Total 8.5 mg/dL (8.5-10.1); Chloride 107 mmol/L (98-107); EST Glomerular Filtration Rate 82 mL/min (>60); Est Glom Filt Rate - Afr Amer 100 mL/min (>60); Globulin 3.3 g/dL (2.2-4.2); Glucose 115 mg/dL (74-106); Protein, Total 6.5 g/dL (6.4-8.2); Sodium Level 138 mmol/L (136-145); Thyroid Stim Hormone (TSH) 0.78 uIU/mL (0.358-3.74)
== END | disposition home or self-care (01) ==
PROVIDERS: PCP Family Medicine Geriatric Medicine; Visit Provider Family Medicine Geriatric Medicine
DX: R53.83 Other fatigue (principal); E61.2 Magnesium deficiency
CPT/HCPCS: 36415; 80053; 83735; 84443; 85025

== ENCOUNTER → 2022-01-20 | Outpatient (CLI) | payer MEDICAID, SELFPAY ==
--- NOTE | 2022-01-20 16:58 | RAD_ITS ---
EXAM: XR CHEST, 2 VIEWS CLINICAL INDICATION: COUGH TECHNIQUE: Frontal and lateral views of the chest. This report was created using [employer] It report generation technology. COMPARISON: 12/07/2019 FINDINGS: LUNGS AND PLEURAL SPACES: Unremarkable. No consolidation or edema. No pneumothorax. No effusion. HEART: Unremarkable. Cardiac silhouette not enlarged. MEDIASTINUM: Central airways and mediastinal contour are unremarkable. BONES/JOINTS: Unremarkable. SOFT TISSUES: Unremarkable. RAD/Chest PA and Lateral IMPRESSION: No radiographic evidence of acute cardiopulmonary disease. Electronically Signed: Abelino Holley MD at 23:17 EST ,
== END | disposition home or self-care (01) ==
LOC: RAD 16:56
PROVIDERS: PCP Family Medicine Geriatric Medicine; Referring Provider Family Medicine Geriatric Medicine; Visit Provider Family Medicine Geriatric Medicine
DX: R05.9 Cough, unspecified (principal)
CPT/HCPCS: 71046

== ENCOUNTER → 2022-01-27 | Outpatient (CLI) | payer MEDICAID, SELFPAY ==
--- NOTE | 2022-01-27 14:06 | BI_ITS ---
MAMMOGRAPHY - BILATERAL SCREENING REASON FOR EXAM: Female, 46 years old. Routine annual screening examination. PERTINENT HISTORY: Mother with breast cancer. Grandmother with breast cancer. Aunt with breast cancer. TECHNIQUE: Digital bilateral breast kasey (3D mammographic acquisition) in the CC and MLO projections. 2-D mediolateral oblique (MLO) and craniocaudad (CC) views of both breasts were obtained. CAD: Full Field Digital Mammography with Computer Added Detection was performed. COMPARISON: None. Baseline examination. FINDINGS: Breast Composition: The breasts are heterogeneously dense, which may obscure small masses. There are no dominant masses or suspicious calcifications. No other significant abnormalities are identified. BI/SCRN MAMM (CAD)W/KASEY BILAT IMPRESSION: Negative screening mammogram. Yearly followup mammogram recommended. (A) ASSESSMENT CATEGORY: BIRADS Category 1: Negative. A letter regarding these results will be sent to the patient by the facility within 30 days. Approximately 10% of breast cancers are not detected by mammography. A normal mammogram should not delay biopsy of a clinically suspicious abnormality. [id number] Electronically Signed: Andre Green MD at 14:40 EST ,
== END | disposition home or self-care (01) ==
LOC: OPBI 14:05
PROVIDERS: PCP Family Medicine Geriatric Medicine; Referring Provider Family Medicine Geriatric Medicine; Visit Provider Family Medicine Geriatric Medicine
DX: Z12.31 Encounter for screening mammogram for malignant neoplasm of breast (principal); Z80.3 Family history of malignant neoplasm of breast
CPT/HCPCS: 77063; 77067

== ENCOUNTER → 2022-02-12 | Outpatient (CLI) | payer MEDICAID, SELFPAY | END | disposition home or self-care (01) | LOC: PSN 08:41 | PROVIDERS: PCP Family Medicine Geriatric Medicine; Visit Provider Family Medicine Geriatric Medicine | DX: R68.83 Chills (without fever) (principal) | CPT/HCPCS: 87635; 87804; 87807; C9803; U0003; U0005 ==